=== PATIENT | female | born 1980 ===

== ENCOUNTER 2017-03-26 16:08 | Emergency (ER) | payer MEDICAID ==
[2017-03-26 16:20] VITALS: TEMP 98.5; O2SAT 98
--- NOTE | 2017-03-26 16:39 | C.PDOC ---
History Of Present Illness 37 year old female presents to the ED with complaints of gradual onset of left sided headache for three days that has become a general headache. Patient notes chills and pain to the left side of the neck, especially when swallowing. She also mentions the sensation of pressure behind her eyes, clogged ears, and feels as though "water is moving in my head." Patient took Tylenol with no relief. She denies history of headaches or medical problems, cough, nasal discharge, fever, or URI symptoms. Time Seen by Provider: 03/26/17 16:24 Chief Complaint (Nursing): Headache History Per: Patient History/Exam Limitations: no limitations Onset/Duration Of Symptoms: Days (3 days ) Current Symptoms Are (Timing): Still Present Quality: "Pain" Preceeding Symptoms: None Recent travel outside of the [place]: No Past Medical History Reviewed: Historical Data, Nursing Documentation, Vital Signs Vital Signs: Last Vital Signs Temp 98.5 F 03/26/17 16:17 Pulse 96 H 03/26/17 16:17 Resp 20 03/26/17 16:17 BP 117/79 03/26/17 16:17 Pulse Ox 98 03/26/17 18:01 - Medical History PMH: Anxiety, Asthma, Depression - [facility] Procedures ARTIF RUPT MEMBRANES NEC (11/14/01) LOW CERVICAL (11/14/01) Family History: States: Unknown Family Hx - Social History Hx Alcohol Use: No Hx Substance Use: No - Immunization History Hx Tetanus Toxoid Vaccination: No Hx Influenza Vaccination: No Hx Pneumococcal Vaccination: No Review Of Systems Constitutional: Positive for: Chills. Negative for: Fever Eyes: Positive for: Other (pressure behind ears sensation ) ENT: Positive for: Other (clogged ears sensation ) Cardiovascular: Negative for: Chest Pain, Palpitations Respiratory: Negative for: Cough, Shortness of Breath Gastrointestinal: Negative for: Nausea, Vomiting, Abdominal Pain, Diarrhea Musculoskeletal: Positive for: Neck Pain (left sided neck pain ) Neurological: Positive for: Headache Physical Exam - Physical Exam Appears: Non-toxic, Other (Patient is uncomfortable) Head: Tenderness (to the maxillary sinuses), Other (Discomfort with head movement) Eye(s): bilateral: Normal Inspection, PERRL, EOMI Ear(s): Bilateral: Normal Nose: No Discharge, Other (patient seems congested ) Oral Mucosa: Moist Throat: Erythema, No Exudate Neck: Other (Left anterior cervical node tenderness ) Chest: Symmetrical, No Deformity Cardiovascular: Rhythm Regular, No Murmur Respiratory: Normal Breath Sounds, No Rhonchi, No Wheezing Gastrointestinal/Abdominal: Soft, No Tenderness, No Distention, No Guarding, No Rebound Extremity: Normal ROM, No Tenderness, No Pedal Edema, No Calf Tenderness, Capillary Refill (good capillary refill, less than two seconds ), No Swelling Neurological/Psych: Oriented x3, Normal Speech, Normal Cognition, Normal Cranial Nerves, Normal Motor, Normal Sensation ED Course And Treatment - Laboratory Results Result Diagrams: 03/26/17 16:39 03/26/17 16:39 Lab Interpretation: No Acute Changes O2 Sat by Pulse Oximetry: 98 (room air ) Pulse Ox Interpretation: Normal - CT Scan/US CT head Other Rad Studies (CT/US): Read By Radiologist, Radiology Report Reviewed CT/US Interpretation: Accession No. : [id number]. Patient Name / ID : ESSENCE MARES / [id number]. Exam Date : 03/26/2017 17:16:37 ( Approved ). Study Comment : Sex / Age : F / [id number]. Creator : Fatuma Vaca MD. Dictator : Database Report Writer : Channel Marketing Program Manager : Fatuma Vaca MD. Approver2 : Report Date : 03/26/2017 17:35:36. My Comment : . PROCEDURE: CT HEAD WITHOUT CONTRAST. HISTORY: Headache. COMPARISON: None available. TECHNIQUE : Axial computed tomography images were obtained through the head/brain without intravenous contrast. Radiation dose: Total exam DLP = 811.56 mGy-cm. This CT exam was performed using one or more of the following dose reduction techniques: Automated exposure control, adjustment of the mA and/or kV according to patient size, and/or use of iterative reconstruction technique. FINDINGS: HEMORRHAGE: No intracranial hemorrhage. BRAIN: No mass effect or edema. The horn-white matter differentiation appears intact. Please note that MRI with diffusion imaging is more sensitive in the detection of acute ischemic event. VENTRICLES: No hydrocephalus. CALVARIUM: Unremarkable. PARANASAL SINUSES: Unremarkable as visualized. No significant inflammatory changes. MASTOID AIR CELLS: Unremarkable as visualized. No inflammatory changes. OTHER FINDINGS: None. IMPRESSION: No acute intracranial pathology identified. Progress Note: Head CT, CMP, and UA were ordered. Patient was given motrin. 6: 00 Patient c/opersistent headache unrelieved with Motrin. Reglan and Decadron IV ordered. Reevaluation Time: 19:01 Reassessment Condition: Improved (after Reglan and Decadron) Disposition - Disposition Referrals: Ulises Sheikh MD [Medical Doctor] - Disposition: HOME/ ROUTINE Disposition Time: 19:01 Condition: IMPROVED Instructions: Tension Headache (ED) Forms: [facility] (Cymraes) - Clinical Impression Clinical Impression: Headache - Scribe Statement The provider has reviewed the documentation as recorded by the Scribe La Guzman All medical record entries made by the Scribe were at my direction and personally dictated by me. I have reviewed the chart and agree that the record accurately reflects my personal performance of the history, physical exam, medical decision making, and the department course for this patient. I have also personally directed, reviewed, and agree with the discharge instructions and disposition.
[2017-03-26 16:42] LABS: BASO % 0.6 % (0.0-2.0); EOS # 0.2 K/uL (0.0-0.7); EOS % 2.3 % (0.0-4.0); LYMPH # 2.6 K/uL (1.0-4.3); LYMPH % 33.4 % (20.0-40.0); MEAN CELL VOLUME 81.5 fL (81.0-99.0); MEAN CORPUSCULAR HEMOGLOBIN 26.9 pg (27.0-31.0); MEAN PLATELET VOLUME 9.9 fL (7.2-11.7); MONO # 0.4 K/uL (0.0-0.8); MONO % 5.7 % (0.0-10.0); RED CELL DISTRIBUTION WIDTH 14.8 % (11.5-14.5); WHITE BLOOD COUNT 7.8 K/uL (4.8-10.8)
[2017-03-26 16:50] LABS: CHLORIDE 106 mmol/L (98-107); SODIUM 139 mmol/L (132-148)
[2017-03-26 16:51] LABS: POTASSIUM 3.9 mmol/L (3.6-5.2)
[2017-03-26 16:53] LABS: ALB/GLOB RATIO 1.3 (1.0-2.1); ALKALINE PHOSPHATASE 67 U/L (38-126); ALT/SGPT 22 U/L (9-52); AST/SGOT 20 U/L (14-36); BILIRUBIN,TOTAL 0.6 mg/dL (0.2-1.3); BLOOD UREA NITROGEN 12 mg/dL (7-17); CALCIUM 9.5 mg/dl (8.6-10.4); CARBON DIOXIDE 21 mmol/L (22-30); GFR AFRICAN-AMERICAN > 60; GLUCOSE,RANDOM 89 mg/dL (65-105); TOTAL PROTEIN 7.5 g/dL (6.3-8.3)
--- NOTE | 2017-03-26 17:37 | CT ---
PROCEDURE: CT HEAD WITHOUT CONTRAST. HISTORY: Headache COMPARISON: None available. TECHNIQUE: Axial computed tomography images were obtained through the head/brain without intravenous contrast. Radiation dose: Total exam DLP = 811.56 mGy-cm. This CT exam was performed using one or more of the following dose reduction techniques: Automated exposure control, adjustment of the mA and/or kV according to patient size, and/or use of iterative reconstruction technique. FINDINGS: HEMORRHAGE: No intracranial hemorrhage. BRAIN: No mass effect or edema. The horn-white matter differentiation appears intact. Please note that MRI with diffusion imaging is more sensitive in the detection of acute ischemic event. VENTRICLES: No hydrocephalus. CALVARIUM: Unremarkable. PARANASAL SINUSES: Unremarkable as visualized. No significant inflammatory changes. MASTOID AIR CELLS: Unremarkable as visualized. No inflammatory changes. OTHER FINDINGS: None. IMPRESSION: No acute intracranial pathology identified.
[2017-03-26] MEDS ORDERED: Dexamethasone 4 mg/1 ml IVP STA (18:01)
[2017-03-26] MEDS ORDERED: Dexamethasone 4 mg/1 ml ONE (18:20)
[2017-03-26 19:08] VITALS: BP 121/82; PULSE 88; RESP 18
== END 2017-03-26 19:09 | disposition home or self-care (01) ==
LOC: C.ER 16:08
DX: R51 Headache (principal)
CPT/HCPCS: 70450; 80053; 84703; 85025; 87070; 87430; 96374; 96375; 99285; J1100; J2765

== ENCOUNTER 2017-10-29 18:31 | Emergency (ER) | payer MEDICAID ==
[2017-10-29] MEDS ORDERED: Amoxicillin-Clav 875-125 mg Tab PO STA (19:14)
--- NOTE | 2017-10-29 19:17 | C.PDOC ---
History Of Present Illness 37 year old female presents to the ER with a complaint of cough, sneezing, and body aches for the past 3 days. Patient states she is now having sinus pressure and green nasal discharge. Denies fever, chills, sick contact, or recent travel. Time Seen by Provider: 10/29/17 19:06 Chief Complaint (Nursing): Headache History Per: Patient History/Exam Limitations: no limitations Onset/Duration Of Symptoms: Days Current Symptoms Are (Timing): Still Present Preceeding Symptoms: None Associated Symptoms: denies: Photophobia, Blurred Vision, Nausea, Vomiting, Extremity Weakness Recent travel outside of the [place]: No Past Medical History Reviewed: Historical Data, Nursing Documentation, Vital Signs Vital Signs: Last Vital Signs Temp 98.5 F 10/29/17 18:41 Pulse 98 H 10/29/17 18:41 Resp 20 10/29/17 20:07 BP 119/77 10/29/17 18:41 Pulse Ox 98 10/29/17 20:01 - Medical History PMH: Anxiety, Asthma, Depression - [facility] Procedures ARTIF RUPT MEMBRANES NEC (11/14/01) LOW CERVICAL (11/14/01) Family History: States: Unknown Family Hx - Social History Hx Alcohol Use: No Hx Substance Use: No - Immunization History Hx Tetanus Toxoid Vaccination: No Hx Influenza Vaccination: No Hx Pneumococcal Vaccination: No Review Of Systems Constitutional: Negative for: Fever, Chills ENT: Negative for: Ear Pain, Throat Pain Respiratory: Positive for: Cough Musculoskeletal: Positive for: Other (Body aches) Physical Exam - Physical Exam Appears: Non-toxic Skin: Normal Color, Warm, Dry Head: Atraumatic, Normacephalic, Tenderness (to percussion of maxillary sinus) Eye(s): bilateral: Normal Inspection Ear(s): Bilateral: Normal Nose: Normal Oral Mucosa: Moist Throat: Normal, No Erythema, No Exudate Neck: Normal, Supple Chest: Symmetrical, No Tenderness Cardiovascular: Rhythm Regular Respiratory: Normal Breath Sounds, No Rales, No Rhonchi, No Wheezing Neurological/Psych: Oriented x3, Normal Speech ED Course And Treatment O2 Sat by Pulse Oximetry: 98 (Room air) Pulse Ox Interpretation: Normal Progress Note: Motrin administered. Patient is resting comfortably in the ER in no acute distress, vitals are stable, will discharge home on augmentin and flonase and instructions to follow up with PMD or return if symptoms worsen. Disposition - Disposition Referrals: Bryan David MD [Staff Provider] - Disposition: HOME/ ROUTINE Disposition Time: 19:14 Condition: STABLE Additional Instructions: Follow up with ENT within 1-2 days. Return to ED if feel worse. Prescriptions: Amoxicillin/Clavulanate [Augmentin 875 MG-125 MG] 1 tab PO BID #20 tab Fluticasone Nasal [Flonase] 1 spr NS BID #1 spr Ibuprofen [Motrin Tab] 600 mg PO Q8 #30 tab Instructions: Sinusitis, Adult (DC) Forms: [employer] (Arabic) - Clinical Impression Clinical Impression: Sinusitis - PA / DESIGN ENGINEER / Resident Statement MD/DO has reviewed & agrees with the documentation as recorded. - Scribe Statement The provider has reviewed the documentation as recorded by the Scribe Maged Ocampo All medical record entries made by the Scribe were at my direction and personally dictated by me. I have reviewed the chart and agree that the record accurately reflects my personal performance of the history, physical exam, medical decision making, and the department course for this patient. I have also personally directed, reviewed, and agree with the discharge instructions and disposition.
[2017-10-30 11:34] VITALS: BP 119/77; PULSE 98; RESP 20; TEMP 98.5; O2SAT 98; BMI 25.7
== END 2017-10-29 20:06 | disposition home or self-care (01) ==
LOC: C.ER 18:31
DX: J32.9 Chronic sinusitis, unspecified (principal)

== ENCOUNTER 2018-03-10 13:50 | Emergency (ER) | payer MEDICARE, MEDICAID ==
[2018-03-10 14:08] VITALS: BMI 27.4
[2018-03-10 14:10] VITALS: TEMP 98.4; O2SAT 97
--- NOTE | 2018-03-10 16:21 | RAD ---
Date of service: 03/10/2018 HISTORY: left chest wall pain COMPARISON: No prior. TECHNIQUE: Chest PA and lateral FINDINGS: LUNGS: No active pulmonary disease. PLEURA: No significant pleural effusion identified. No pneumothorax apparent. CARDIOVASCULAR: Normal. OSSEOUS STRUCTURES: No significant abnormalities. VISUALIZED UPPER ABDOMEN: Normal. OTHER FINDINGS: None. IMPRESSION: No acute cardiopulmonary disease appreciated.
--- NOTE | 2018-03-10 16:24 | C.PDOC ---
History Of Present Illness 38 year old female, with past psychiatric history, presents to the ED for evaluation of left upper back pain which began around three days ago. Patient states her pain began after she used an exercise[place]massage [place] the [place]. Patient describes her pain as sharp in nature and states it is worse with movement, and is unable to lie on back to sleep due to pain. She notes it occasionally shoots to her anterior chest wall and reports pain with when she breathes. She denies shortness of breath, direct trauma/injury to the site, diaphoresis. Time Seen by Provider: 03/10/18 14:31 Chief Complaint (Nursing): Back Pain History Per: Patient History/Exam Limitations: no limitations Onset/Duration Of Symptoms: Days Current Symptoms Are (Timing): Still Present Quality Of Discomfort: Sharp, "Pain" Previous Symptoms: Back Pain (left, upper ) Exacerbating Factor(s): Movement Additional History Per: Patient Past Medical History Reviewed: Historical Data, Nursing Documentation, Vital Signs Vital Signs: Last Vital Signs Temp 98.4 F 03/10/18 14:08 Pulse 68 03/10/18 17:05 Resp 16 03/10/18 17:05 BP 100/64 03/10/18 17:05 Pulse Ox 97 03/10/18 22:09 - Medical History PMH: Anxiety, Asthma, Depression, Post Traumatic Stress Disorder Surgical History: No Surg Hx - [facility] Procedures ARTIF RUPT MEMBRANES NEC (11/14/01) LOW CERVICAL (11/14/01) Family History: States: Unknown Family Hx - Social History Hx Alcohol Use: No Hx Substance Use: No - Immunization History Hx Tetanus Toxoid Vaccination: No Hx Influenza Vaccination: No Hx Pneumococcal Vaccination: No Review Of Systems Cardiovascular: Positive for: Chest Pain (anterior ) Respiratory: Negative for: Shortness of Breath Musculoskeletal: Positive for: Neck Pain, Back Pain (left, upper ) Physical Exam - Physical Exam Appears: Non-toxic, No Acute Distress Skin: Normal Color, Warm, Dry Head: Atraumatic, Normacephalic Eye(s): bilateral: Normal Inspection Oral Mucosa: Moist Neck: No Midline Cervical Tenderness, Paracervical Tenderness (left, lateral with left trapezius tenderness. ), Supple Chest: Symmetrical, No Deformity, Tenderness (left, upper anterior chest wall ) Cardiovascular: Rhythm Regular, No Murmur Respiratory: Normal Breath Sounds, No Rales, No Rhonchi, No Wheezing Back: Other (left trapezius tenderness. tender to left upper back, no redness, swelling or erythema noted. ) Extremity: Normal ROM, Capillary Refill (less than 2 seconds ) Neurological/Psych: Oriented x3, Normal Speech, Normal Cognition, Normal Motor, Normal Sensation Gait: Steady ED Course And Treatment ECG: Interpreted By Me, Viewed By Me ECG Rhythm: Sinus Rhythm Interpretation Of ECG: Normal Sinus Rhythm at rate 69bpm. Rate From EC O2 Sat by Pulse Oximetry: 97 (on RA) Pulse Ox Interpretation: Normal - Other Rad CXR X-Ray: Interpreted by Me, Viewed By Me, Read By Radiologist Interpretation: HISTORY: left chest wall pain. COMPARISON: No prior. TECHNIQUE: Chest PA and lateral. FINDINGS: LUNGS: No active pulmonary disease. PLEURA: No significant pleural effusion identified. No pneumothorax apparent. CARDIOVASCULAR: Normal. OSSEOUS STRUCTURES: No significant abnormalities. VISUALIZED UPPER ABDOMEN: Normal. OTHER FINDINGS: None. IMPRESSION: No acute cardiopulmonary disease appreciated. Medical Decision Making Medical Decision Making: Impression: 38 year old female with left upper back pain Plan: * CXR * EKG * Toradol IM * Tylenol PO * Valium PO * reassess and disposition Progress: CXR and EKG ordered and reviewed. Toradol IM, Tylenol PO, and Valium PO given. 1710 pt reports pain decreased after medication. cxr and ekg neg for any acute changes. will d/c with nsaids and muscle relaxant Disposition Counseled Patient/Family Regarding: Studies Performed, Diagnosis, Need For Followup, Rx Given - Disposition Referrals: Ulises Sheikh MD [Medical Doctor] - Disposition: HOME/ ROUTINE Disposition Time: 17:12 Condition: IMPROVED Additional Instructions: Please follow up with Dr Sheikh in a few days. Take naproxen as prescribed. Take muscle relaxant up to 3 times a day; but d o not drive or work when taking this medication. If working,take at bedtime only. Prescriptions: Cyclobenzaprine [Cyclobenzaprine HCl] 10 mg PO Q8 #9 tab Naproxen 500 mg PO BID #20 tab Instructions: Upper Back Pain (DC) Forms: [facility] (Kinyarwanda), General Discharge Instructions - Clinical Impression Clinical Impression: Upper back pain on left side - PA / FISCAL SPECIALIST / Resident Statement MD/DO has reviewed & agrees with the documentation as recorded. - Scribe Statement The provider has reviewed the documentation as recorded by the Scribe
[2018-03-10 17:06] VITALS: BP 100/64; PULSE 68; RESP 16
--- NOTE | 2018-03-11 15:26 | CARD ---
APPROVED REPORT Date of service: 03/10/2018 EKG Measurement Heart [id number] <Conclusion> Normal sinus rhythm Normal ECG
== END 2018-03-10 17:19 | disposition home or self-care (01) ==
LOC: C.ER 13:50
DX: M54.6 Pain in thoracic spine (principal)
CPT/HCPCS: 71046; 93005; 96372; 99284; J1885

== ENCOUNTER 2018-07-10 19:35 | Emergency (ER) | payer MEDICARE, MEDICAID ==
[2018-07-10 19:36] VITALS: BMI 27.4
--- NOTE | 2018-07-10 19:58 | C.PDOC ---
History Of Present Illness 38 year old female presents to the ED for evaluation of pain, swelling and itchiness to her rectal region associated with dizziness every time she has a BM which began 3 days ago. She notes this feels like a hemorrhoid for which she previously has had. Patient states she was initially constipated and now has diarrhea, which has exacerbated her symptoms. No recent antibiotics. She notes one episode of diarrhea a day. Patient has tried applying [id number] cream (preparation H suppository) to the area without relief. She notes some bleeding from the external hemorrhoid intermittently but otherwise no dark stool or bloody stool. She denies fever, chills, vomiting, use of new foods or antibiotics, recent trauma/falls. Time Seen by Provider: 07/10/18 19:58 Chief Complaint (Nursing): Abnormal Skin Integrity History Per: Patient History/Exam Limitations: no limitations Onset/Duration Of Symptoms: Days (3) Current Symptoms Are (Timing): Still Present Quality Of Symptoms: Painful, Itching, Swollen Additional History Per: Patient Past Medical History Reviewed: Historical Data, Nursing Documentation, Vital Signs - Medical History PMH: Anxiety, Asthma, Depression, Post Traumatic Stress Disorder Surgical History: No Surg Hx - [facility] Procedures ARTIF RUPT MEMBRANES NEC (11/14/01) LOW CERVICAL (11/14/01) Family History: States: Unknown Family Hx - Social History Hx Alcohol Use: No Hx Substance Use: No - Immunization History Hx Tetanus Toxoid Vaccination: No Hx Influenza Vaccination: No Hx Pneumococcal Vaccination: No Review Of Systems Constitutional: Negative for: Fever, Chills Eyes: Negative for: Pain ENT: Negative for: Ear Pain Cardiovascular: Negative for: Chest Pain Respiratory: Negative for: Cough, Shortness of Breath, Hemoptysis, SOB with E xcertion, Pleuritic Pain, Wheezing Gastrointestinal: Positive for: Diarrhea, Rectal Pain. Negative for: Nausea, Vomiting, Melena, Hematochezia Genitourinary: Negative for: Dysuria, Frequency, Hematuria, Pelvic Pain Musculoskeletal: Negative for: Neck Pain, Shoulder Pain, Back Pain Neurological: Positive for: Dizziness (only when she has hemorrhoid pain). Negative for: Weakness, Numbness, Confusion Psych: Negative for: Anxiety, Depression Physical Exam - Physical Exam Appears: Non-toxic, No Acute Distress Skin: Normal Color, Warm, Dry Head: Atraumatic, Normacephalic Eye(s): bilateral: Normal Inspection, PERRL, EOMI Oral Mucosa: Moist Neck: Normal, Normal ROM, Supple Chest: Symmetrical, No Deformity Cardiovascular: Rhythm Regular Respiratory: Normal Breath Sounds Gastrointestinal/Abdominal: Normal Exam Rectal: Hemorrhoids (one, non-thrombosed external hemorrhoid at the 12 o clock position ), No Mass, Tenderness (mild ), Other (no erythema. plumber maintenance: Mary Anne Cedillo RN ) Back: Normal Inspection, No CVA Tenderness Extremity: Normal ROM, No Tenderness Extremity: Bilateral: Atraumatic Neurological/Psych: Oriented x3, Normal Speech, Normal Cognition Gait: Steady ED Course And Treatment - Laboratory Results Result Diagrams: 07/10/18 20:23 07/10/18 20:23 O2 Sat by Pulse Oximetry: 98 (on RA) Pulse Ox Interpretation: Normal Medical Decision Making Medical Decision Makin yr old female w/ hx of iron def anemia p/w hemorrhoid pain and dizziness secondary to pain when she defecates. Non thrombosed external hemorrhoid. No dark or bloody stool. intermittent bleed from hemorrhoid. Diarrhea w/ out abdominal pain or recent abx. Not fully loose diarrhea. No recent travel abroad. Pending labs. Progress: Bloodwork ordered and reviewed. 2118 labs unremarkable pt requestig motrin script endorsed to pt regarding continuation of preparation H suppository as well as follow up w/ Surgery potentially for worsening hemorrhoid. Pt agreeable to plan. d/c home w/ return indications and followup Disposition - Disposition Referrals: [facility] [Outside] [facility] [Outside] [facility] [Outside] Remington Lopez MD [Staff Provider] - Disposition: HOME/ ROUTINE Disposition Time: 21:19 Condition: GOOD Additional Instructions: CONTINUE THE PREPARATION H. FOLLOW UP WITH A SURGEON IF THE PAIN PERSISITS SUZAN LOWRY, thank you for letting us take care of you today. Your provider was Yovani Cole and you were treated for HEMORRHOIDS/HEADACHE. The emergency medical care you received today was directed at your acute symptoms. If you were prescribed any medication, please fill it and take as directed. It may take several days for your symptoms to resolve. Return to the Emergency Department if your symptoms worsen, do not improve, or if you have any other problems. Please contact your doctor or call one of the physicians/clinics you have been referred to that are listed on the Patient Visit Information form that is included in your discharge packet. Bring any paperwork you were given at discharge with you along with any medications you are taking to your follow up visit. Our treatment cannot replace ongoing medical care by a primary care provider outside of the emergency department. Thank you for allowing the [email or web address] team to be part of your care today. If you had an X-Ray or CT scan: A Radiologist will review the ED reading if any change in treatment is needed we will contact you. If you had a blood, urine, or wound culture: It will take several days for the results, if any change in treatment is needed we will contact you. If you had an STI test: It will take 48 hours for the results. Please call after 1 week if you have not heard back. Prescriptions: Ibuprofen [Motrin] 200 mg PO Q6H PRN 5 Days #20 tab PRN Reason: Pain, Moderate (4-7) Instructions: Hemorrhoids, Hemorrhoids (DC) Forms: [employer] (Paraguayan) - Clinical Impression Clinical Impression: Hemorrhoid - Scribe Statement The provider has reviewed the documentation as recorded by the Scribe Provider Attestation: All medical record entries made by the Scribe were at my direction and personally dictated by me. I have reviewed the chart and agree that the record accurately reflects my personal performance of the history, physical exam, medi tasha decision making, and the department course for this patient. I have also personally directed, reviewed, and agree with the discharge instructions and disposition.
[2018-07-10 20:03] VITALS: BP 128/75; PULSE 80; TEMP 97.8; O2SAT 98
[2018-07-10 20:27] LABS: BASO % 0.4 % (0.0-2.0); EOS # 0.2 K/uL (0.0-0.7); EOS % 2.1 % (0.0-4.0); HEMOGLOBIN 11.8 g/dL (11.0-16.0); LYMPH % 33.3 % (20.0-40.0); MEAN CELL VOLUME 80.8 fL (81.0-99.0); MEAN CORPUSCULAR HEMOGLOBIN 26.8 pg (27.0-31.0); MEAN CORPUSCULAR HGB CONC 33.2 g/dL (33.0-37.0); MEAN PLATELET VOLUME 8.9 fL (7.2-11.7); MONO # 0.5 K/uL (0.0-0.8); MONO % 5.7 % (0.0-10.0); NEUT # 5.3 K/uL (1.8-7.0); NEUT % 58.5 % (50.0-75.0); RBC 4.41 Mil/uL (3.80-5.20); RED CELL DISTRIBUTION WIDTH 14.3 % (11.5-14.5); WHITE BLOOD COUNT 9.1 K/uL (4.8-10.8)
[2018-07-10 20:43] LABS: ALB/GLOB RATIO 1.5 (1.0-2.1); ALBUMIN 4.5 g/dL (3.5-5.0); ALT/SGPT 20 U/L (9-52); AST/SGOT 24 U/L (14-36); BLOOD UREA NITROGEN 16 mg/dL (7-17); CALCIUM 9.3 mg/dl (8.6-10.4); GFR NON-AFRICAN AMERICAN > 60
[2018-07-10 21:27] VITALS: RESP 20
== END 2018-07-10 21:26 | disposition home or self-care (01) ==
LOC: C.ER 19:35
DX: K64.9 Unspecified hemorrhoids (principal)